=== PATIENT | male | born 2000 | race Caucasian/White ===

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

== ENCOUNTER → 2019-09-14 02:26 | Outpatient (CLI) | payer OTHER, SELFPAY ==
[2019-09-14 16:13] LABS: HCT 41.8 % (40.0-50.0); HGB 14.9 g/dL (13.5-17.5); Mean Corp. HGB Concentration 35.6 g/dL (32.0-36.0); Mean Corpuscular Hemoglobin 30.7 pg (27.0-33.0); Mean Platelet Volume 9.4 fL (8.0-11.0); Platelet Count 279 x1000/uL (130-400); RBC 4.86 m/cumm (4.50-6.00); RBC Distribution Width 12.3 % (11.8-14.1); White Blood Cell Count 5.19 k/cumm (4.4-10.8)
[2019-09-14 16:28] LABS: Magnesium 1.9 mg/dL (1.8-2.4)
[2019-09-14 16:40] LABS: TSH (W/Ref FT4) 0.61 uIU/mL (0.36-3.74)
[2019-09-14 18:53] LABS: ESR 4 mm/hr (0-15)
[2019-09-15 14:58] LABS: ANA Interpretation Negative (Negative)
[2019-09-18 12:13] LABS: Copper, Serum 0.69 mcg/mL (0.75-1.45)
[2019-09-18 12:47] LABS: Ceruloplasmin 16.5 mg/dL
[2019-09-18 14:06] LABS: Syphilis Total Ab w/Reflex Nonreactive (Nonreactive)
== END ==
PROVIDERS: PCP Nurse Practitioner Family; Visit Provider Nurse Practitioner Family
DX: R25.3 Fasciculation (principal)
CPT/HCPCS: 36415; 82390; 85027; 85652; 82525; 83735; 84443; 86038; 86780

== ENCOUNTER 2019-09-20 03:04 | Outpatient (CLI) | payer OTHER, SELFPAY ==
[2019-09-20 13:31] LABS: ALT 16 U/L (16-63); AST 18 U/L (15-37); Albumin 4.4 g/dL (3.4-5.0); Alkaline Phosphatase 57 U/L (46-116); Anion Gap 9.5 mmol/L (3-11); BUN 14 mg/dL (7-18); Bilirubin, Total 0.6 mg/dL (0.2-1.0); CO2 27.5 mmol/L (21.0-32.0); CREATININE 1.39 mg/dL (0.70-1.30); Calcium 9.1 mg/dL (8.5-10.1); Chloride 103 mmol/L (98-107); Glucose 86 mg/dL (74-106); Potassium 4.2 mmol/L (3.5-5.1); Sodium 140 mmol/L (136-145); Total Protein 7.2 g/dL (6.4-8.2)
== END 2019-09-20 03:24 ==
PROVIDERS: PCP Nurse Practitioner Family; Visit Provider Nurse Practitioner Family
DX: R25.3 Fasciculation (principal)
CPT/HCPCS: 36415; 80053

== ENCOUNTER 2019-09-22 16:53 | Outpatient (REF) | payer OTHER, SELFPAY ==
[2019-10-02 14:53] LABS: Copper 24 Hr, U 7 mcg/24 h (9-71); Urine Volume 1050 mL
== END 2019-09-22 17:13 ==
LOC: NCHCN 16:53
PROVIDERS: PCP Nurse Practitioner Family; Visit Provider Nurse Practitioner Family
DX: R25.3 Fasciculation (principal)
CPT/HCPCS: 81050; 82525

== ENCOUNTER 2019-09-29 03:52 | Outpatient (CLI) | payer OTHER, SELFPAY ==
--- NOTE | 2019-09-29 15:20 | DI.MRI_ITS ---
EXAM: MR BRAIN WO/W CLINICAL HISTORY: MUSCLE TWITCH,R25.3,EVALUATE FOR BASAL GANGLIA TECHNIQUE: Multiplanar multisequence MRI of the brain was performed. Post contrast axial and jensen l T1 weighted images were also obtained. COMPARISON: No exams were available for comparison FINDINGS: The ventricular system is normal in appearances. No signal abnormality identified in the brain. The orbital and temporal bone structures appears intact as does the pituitary. Diffusion weighted imaging shows No evidence of infarction. Susceptibility weighted imaging shows no evidence of intracranial hemorrhage. There is normal flow void in the skull valley of White vasculature. Post contrast imaging shows no evidence of a mass lesion or enhancing lesion in the brain. IMPRESSION: Normal brain MRI DATA REPOSITORY:
[2019-09-29] MEDS: Gadoterate meglumine 20 ML VIAL IV (15:21)
== END 2019-09-29 04:12 ==
PROVIDERS: PCP Nurse Practitioner Family; Visit Provider Nurse Practitioner Family
DX: R25.3 Fasciculation (principal)
CPT/HCPCS: 70553

== ENCOUNTER 2019-10-30 01:09 | Outpatient (CLI) | payer OTHER, SELFPAY ==
--- NOTE | 2019-10-30 14:05 | DI.RAD_ITS ---
EXAM: XR SACROILIAC JOINTS CLINICAL HISTORY: HLS B27+,[id number]. TECHNIQUE: 2D digital imaging was performed. COMPARISON: No exams were available for comparison FINDINGS: BONES: No acute fracture is present. No bony destructive lesion is seen. JOINTS: Well maintained SOFT TISSUE: Normal. IMPRESSION: Unremarkable radiographs of the SI joints. DATA REPOSITORY: RADIATION DOSE DELIVERED:
== END 2019-10-30 01:29 ==
PROVIDERS: PCP Internal Medicine Rheumatology; Visit Provider Internal Medicine Rheumatology
DX: Z15.89 Genetic susceptibility to other disease (principal)
CPT/HCPCS: 72202

== ENCOUNTER 2019-10-30 02:30 | Outpatient (CLI) | payer OTHER, SELFPAY ==
[2019-10-30 15:05] LABS: ESR 4 mm/hr (0-15)
== END 2019-10-30 02:50 ==
PROVIDERS: PCP Internal Medicine Rheumatology; Visit Provider Nurse Practitioner Family
DX: Z15.89 Genetic susceptibility to other disease (principal)
CPT/HCPCS: 36415; 85652; 86140

== ENCOUNTER 2020-03-25 18:35 | Outpatient (REF) | payer BC, SELFPAY ==
[2020-03-25 18:29] LABS: Abs Immature Grans 0.01 10^3/uL (0.0-0.06); Absolute Basophil Count 0.04 10^3/uL (0.0-0.2); Absolute Eosinophil Count 0.09 10^3/uL (0.0-0.7); Absolute Lymphocyte Count 1.57 10^3/uL (1.2-3.4); Absolute Monocyte Count 0.59 10^3/uL (0.1-0.8); Absolute Neutrophil Count 2.35 10^3/uL (1.2-6.7); Basophils % 0.9; Eosinophils % 1.9; HCT 40.5 % (40.0-50.0); HGB 13.8 g/dL (13.5-17.5); Immature Grans % 0.2; Lymphocytes % 33.8; MCH 29.9 pg (27.0-33.0); MCHC 34.1 % (32.0-36.0); MCV 87.9 fL (80-95); MPV 9.5 fL (8.0-11.0); Monocytes % 12.7; Neutrophils % 50.5; Nucleated RBC 0 %; Platelet Count 244 10^3/uL (130-400); RBC 4.61 10^6/uL (4.36-5.78); RDW 12.3 % (11.8-14.1); RDW-SD 39.6 fL; WBC 4.65 10^3/uL (4.4-10.8)
[2020-03-25 18:53] LABS: TSH (W/Ref FT4) 0.75 uIU/mL (0.36-3.74); Vitamin B12 273 pg/mL (193-986)
== END 2020-03-25 18:55 ==
LOC: NCHCN 18:35
PROVIDERS: PCP Internal Medicine Rheumatology; Visit Provider Nurse Practitioner Psychiatric/Mental Health
DX: R41.840 Attention and concentration deficit (principal); F50.9 Eating disorder, unspecified; F32.9 Major depressive disorder, single episode, unspecified; G31.84 Mild cognitive impairment of uncertain or unknown etiology; R41.82 Altered mental status, unspecified
CPT/HCPCS: 82607; 84443; 85025

== ENCOUNTER 2020-06-04 01:56 | Outpatient (CLI) | payer BC, SELFPAY ==
--- NOTE | 2020-06-04 | DI.MRI_ITS ---
EXAM: MR PELVIS WO CLINICAL HISTORY: [id number] POSITIVE,PAIN,REACTIVE ARTHRITIS, ANKYLOSING SPONDYLITIS TECHNIQUE: Multiplanar multisequence MRI of Pelvis was performed COMPARISON: No exams were available for comparison FINDINGS: Bones: There is no fracture or contusion pattern. There is minimal marrow edema seen at the right S I joint. No erosions are seen. No widening of the sacroiliac joints is noted. Musculotendinous structures: Unremarkable. Intrapelvic structures demonstrate no significant abnorm ality. IMPRESSION: Minimal marrow edema seen at the right SI joint. This can be seen with an inflammatory arthritis. N o joint space widening, ankylosis or erosion. DATA REPOSITORY:
== END 2020-06-04 02:16 ==
PROVIDERS: PCP Internal Medicine Rheumatology; Visit Provider Internal Medicine Rheumatology
DX: M54.5 Low back pain (principal); M45.9 Ankylosing spondylitis of unspecified sites in spine
CPT/HCPCS: 72195